=== PATIENT | female | born 1975 | race Caucasian/White ===

== ENCOUNTER → 2020-06-01 | Outpatient (CLI) | payer BC ==
[~2020-06-01] MED LIST: AC325T PO; ACIPHEX; ATIVAN; FLUT16SP22; LEVO500T69 PO; LEXAPRO; LRZ1T PO; LUNESTA; RT-COMBINH IH
== END ==
LOC: WOUNDCARE 09:13
PROVIDERS: ATTEND Surgery
DX: S81.811A Laceration without foreign body, right lower leg, initial encounter (principal); L97.212 Non-pressure chronic ulcer of right calf with fat layer exposed; L03.115 Cellulitis of right lower limb; E66.01 Morbid (severe) obesity due to excess calories
CPT/HCPCS: 11042; 87070; 87077; 87186; 87205; A4649; G0463

== ENCOUNTER → 2020-06-01 | Outpatient (CLI) | payer BC ==
[2020-06-01 11:14] LABS: BASOPHILS # (AUTO) 0.1 10^3/uL (0.0-0.1); BASOPHILS % (AUTO) 1 % (0-10); EOSINOPHILS # (AUTO) 0.4 10^3/uL (0.0-0.3); EOSINOPHILS % (AUTO) 4 % (0-10); HEMATOCRIT 44 % (35-52); HEMOGLOBIN 13.7 g/dL (11.5-16.0); LYMPHOCYTES % (AUTO) 20 % (12-44); MEAN CORPUSCULAR HEMOGLOBIN 29 pg (25-34); MEAN CORPUSCULAR HGB CONC 31 g/dL (32-36); MEAN CORPUSCULAR VOLUME 94 fL (80-99); MEAN PLATELET VOLUME 9.9 fL (9.0-12.2); MONOCYTES # (AUTO) 0.6 10^3/uL (0.0-1.0); MONOCYTES % (AUTO) 6 % (0-12); NEUTROPHILS # (AUTO) 6.5 10^3/uL (1.8-7.8); NEUTROPHILS % (AUTO) 69 % (42-75); PLATELET COUNT 345 10^3/uL (130-400); WHITE BLOOD COUNT 9.5 10^3/uL (4.3-11.0)
[2020-06-01 11:30] LABS: ALANINE AMINOTRANSFERASE 20 U/L (0-55); ALBUMIN 3.8 GM/DL (3.2-4.5); ALKALINE PHOSPHATASE 92 U/L (40-136); BILIRUBIN,TOTAL 0.4 MG/DL (0.1-1.0); BUN/CREATININE RATIO 14; CALCIUM 9.1 MG/DL (8.5-10.1); CARBON DIOXIDE 27 MMOL/L (21-32); CHLORIDE 104 MMOL/L (98-107); CREATININE SERUM 0.83 MG/DL (0.60-1.30); GFR ESTIMATED > 60; GLUCOSE 99 MG/DL (70-105); POTASSIUM 4.2 MMOL/L (3.6-5.0); SODIUM 140 MMOL/L (135-145); TOTAL PROTEIN 7.2 GM/DL (6.4-8.2)
== END ==
LOC: LAB 10:57
PROVIDERS: ATTEND Surgery
DX: L97.212 Non-pressure chronic ulcer of right calf with fat layer exposed (principal); S81.811A Laceration without foreign body, right lower leg, initial encounter; L03.115 Cellulitis of right lower limb; E66.01 Morbid (severe) obesity due to excess calories
CPT/HCPCS: 36415; 80053; 85025

== ENCOUNTER → 2020-06-09 | Outpatient (CLI) | payer BC | LOC: WOUNDCARE 10:55 | PROVIDERS: ATTEND Surgery | DX: L97.212 Non-pressure chronic ulcer of right calf with fat layer exposed (principal); S81.811A Laceration without foreign body, right lower leg, initial encounter; L03.115 Cellulitis of right lower limb; E66.01 Morbid (severe) obesity due to excess calories | CPT/HCPCS: 11042; G0463 ==

== ENCOUNTER → 2020-06-15 | Outpatient (CLI) | payer BC | LOC: WOUNDCARE 09:28 | PROVIDERS: ATTEND Surgery | DX: L97.212 Non-pressure chronic ulcer of right calf with fat layer exposed (principal); S81.811A Laceration without foreign body, right lower leg, initial encounter; L03.115 Cellulitis of right lower limb; E66.01 Morbid (severe) obesity due to excess calories; I96 Gangrene, not elsewhere classified | CPT/HCPCS: 11042; G0463 ==

== ENCOUNTER → 2020-06-23 | Outpatient (CLI) | payer BC | LOC: WOUNDCARE 10:56 | PROVIDERS: ATTEND Surgery | DX: L97.212 Non-pressure chronic ulcer of right calf with fat layer exposed (principal); S81.811A Laceration without foreign body, right lower leg, initial encounter; E66.01 Morbid (severe) obesity due to excess calories; I96 Gangrene, not elsewhere classified | CPT/HCPCS: 11042; G0463 ==

== ENCOUNTER → 2020-06-30 | Outpatient (CLI) | payer BC | LOC: WOUNDCARE 11:00 | PROVIDERS: ATTEND Surgery | DX: S81.811A Laceration without foreign body, right lower leg, initial encounter (principal); E66.01 Morbid (severe) obesity due to excess calories; I96 Gangrene, not elsewhere classified; L97.212 Non-pressure chronic ulcer of right calf with fat layer exposed; Z68.41 Body mass index [BMI] 40.0-44.9, adult | CPT/HCPCS: 11042; G0463 ==

== ENCOUNTER → 2020-07-07 | Outpatient (CLI) | payer BC | LOC: WOUNDCARE 10:59 | PROVIDERS: ATTEND Surgery | DX: S81.811A Laceration without foreign body, right lower leg, initial encounter (principal); E66.01 Morbid (severe) obesity due to excess calories; I96 Gangrene, not elsewhere classified; L97.212 Non-pressure chronic ulcer of right calf with fat layer exposed | CPT/HCPCS: 11042; G0463 ==

== ENCOUNTER → 2020-07-21 | Outpatient (CLI) | payer BC | LOC: WOUNDCARE 11:05 | PROVIDERS: ATTEND Surgery | DX: I96 Gangrene, not elsewhere classified (principal); S81.811A Laceration without foreign body, right lower leg, initial encounter; E66.01 Morbid (severe) obesity due to excess calories; T65.222A Toxic effect of tobacco cigarettes, intentional self-harm, initial encounter; L97.212 Non-pressure chronic ulcer of right calf with fat layer exposed; F17.219 Nicotine dependence, cigarettes, with unspecified nicotine-induced disorders; Z68.41 Body mass index [BMI] 40.0-44.9, adult | CPT/HCPCS: 11042; 29581; A6253; G0463 ==

== ENCOUNTER → 2020-08-04 | Outpatient (CLI) | payer BC | LOC: WOUNDCARE 10:57 | PROVIDERS: ATTEND Orthopaedic Surgery Hand Surgery | DX: L97.212 Non-pressure chronic ulcer of right calf with fat layer exposed (principal); S81.811A Laceration without foreign body, right lower leg, initial encounter; E66.01 Morbid (severe) obesity due to excess calories; T65.222A Toxic effect of tobacco cigarettes, intentional self-harm, initial encounter; F17.218 Nicotine dependence, cigarettes, with other nicotine-induced disorders; I87.2 Venous insufficiency (chronic) (peripheral) | CPT/HCPCS: 11042; G0463 ==

== ENCOUNTER → 2020-08-11 | Outpatient (CLI) | payer BC | LOC: WOUNDCARE 11:00 | PROVIDERS: ATTEND Surgery | DX: L97.212 Non-pressure chronic ulcer of right calf with fat layer exposed (principal); S81.811A Laceration without foreign body, right lower leg, initial encounter; E66.01 Morbid (severe) obesity due to excess calories; T65.222A Toxic effect of tobacco cigarettes, intentional self-harm, initial encounter; I87.2 Venous insufficiency (chronic) (peripheral); I96 Gangrene, not elsewhere classified; F17.218 Nicotine dependence, cigarettes, with other nicotine-induced disorders | CPT/HCPCS: 11042; G0463 ==

== ENCOUNTER → 2020-08-18 | Outpatient (CLI) | payer BC | LOC: WOUNDCARE 11:03 | PROVIDERS: ATTEND Surgery | DX: L97.212 Non-pressure chronic ulcer of right calf with fat layer exposed (principal); S81.811A Laceration without foreign body, right lower leg, initial encounter; E66.01 Morbid (severe) obesity due to excess calories; T65.222A Toxic effect of tobacco cigarettes, intentional self-harm, initial encounter; I87.2 Venous insufficiency (chronic) (peripheral); F17.218 Nicotine dependence, cigarettes, with other nicotine-induced disorders | CPT/HCPCS: 99212 ==